=== PATIENT | female | born 1990 | race Caucasian/White ===

== ENCOUNTER 2017-11-19 17:03 | Inpatient (IN) | payer OTHER, MEDICAID ==
[2017-11-19] MEDS ORDERED: Ampicillin 2 GM in Sodium Chloride 0.9% 100 ML IV ONE (17:20)
[2017-11-19] MEDS ORDERED: Ampicillin 2 GM Vial ONE (17:23)
[2017-11-19] MEDS ORDERED: Sodium Chloride 0.9% 100 ML ONE (17:26)
[2017-11-19] MEDS ORDERED: Lactated Ringers 1,000 ML IV ONE (17:45)
--- NOTE | 2017-11-19 18:39 | PCM.LDHP ---
L&D History of Present Illness - General Date of Service: 11/19/17 Admit Problem/Dx: Admission Diagnosis/Problem Admission Diagnosis/Problem Source of Information: Patient History Limitations: Reports: No Limitations - History of Present Illness Introduction:: 27 year old female with EDC of 11/18/17 based on 6 4/7 week US presented with contractions, leaking fluid and some vaginal bleeding starting at 1400 today. On presentation to L&D she was having contractions ever 2 minutes, amniosure was positive, she was 8 cm with a bulging bag and FHT's were 150's with initial earlys to 90's then late decelerations. Timing/Duration: Reports: hour(s): (4) Location, : Reports: Abdomen Severity: Severe - Related Data Allergies/Adverse Reactions: Allergies Allergy/AdvReac Type Severity Reaction Status Date / Time No Known Allergies Allergy Verified 11/19/17 18:36 Home Medications: Home Meds Vits #93/Iron Fum/FA [ Formula Tablet] 1 tab PO DAILY 11/19/17 [History] Social & Family History - Family History Family Medical History: Noncontributory Respiratory: Reports: COPD (MGM) - Tobacco Use Tobacco Use Within Last Twelve Months: Cigarettes Packs/Tins Daily: 0.5 H&P Review of Systems - Review of Systems: Review Of Systems: See Below General: Reports: No Symptoms HEENT: Reports: No Symptoms Pulmonary: Reports: No Symptoms Cardiovascular: Reports: No Symptoms Gastrointestinal: Reports: No Symptoms Genitourinary: Reports: No Symptoms Musculoskeletal: Reports: No Symptoms L&D Exam - Exam Exam: See Below - Vital Signs Weight: 160 lb - OB Specific Contraction Intensity: Moderate to Strong Heart Rate (FHR) Variability: Moderate (6-25 bmp) Presentation: Left Occiput Anterior (SUZAN) - Dean Score Dean Score Dilation: > 5 cm - Exam General: Alert, Oriented Lungs: Clear to Auscultation Cardiovascular: Regular Rate, Regular Rhythm GI/Abdominal Exam: Soft, Non-Tender Skin: Warm, Dry, Intact - Patient Data Lab Results Last 24 hrs: Laboratory Results - last 24 hr 11/19/17 11/19/17 Range/Units 17:12 17:21 Urine Color Yellow Urine Appearance Cloudy Urine pH 6.0 (4.5-8.0) Ur Specific [place] 1.005 L (1.008-1.030) Urine Protein Negative (NEGATIVE) mg/dL Urine Glucose (UA) Normal (NEGATIVE) mg/dL Urine Ketones 15 H (NEGATIVE) mg/dL Urine Occult Blood Large (NEGATIVE) Urine Nitrite Negative (NEGATIVE) Urine Bilirubin Negative (NEGATIVE) Urine Urobilinogen Normal (NORMAL) mg/dL Ur Leukocyte Esterase Large (NEGATIVE) Urine RBC 75-100 H (0-5) Urine WBC 20-30 H (0-5) Ur Epithelial Cells Rare Amorphous Sediment Not seen Urine Bacteria Moderate Urine Mucus Not seen Urine Opiates Screen Negative (NEGATIVE) Ur Oxycodone Screen Negative (NEGATIVE) Urine Methadone Screen Negative (NEGATIVE) Ur Propoxyphene Screen Negative (NEGATIVE) Ur Barbiturates Screen Negative (NEGATIVE) Ur Tricyclics Screen Negative (NEGATIVE) Ur Phencyclidine Scrn Negative (NEGATIVE) Ur Amphetamine Screen Negative (NEGATIVE) U Methamphetamines Scrn Negative (NEGATIVE) Urine MDMA Screen Negative (NEGATIVE) U Benzodiazepines Scrn Negative (NEGATIVE) U Cocaine Metab Screen Negative (NEGATIVE) U Marijuana (THC) Screen Negative (NEGATIVE) - Problem List (1) Group B streptococcal carriage complicating SNOMED Code(s): 650558203410676 ICD Code: O99.820 - STREPTOCOCCUS B CARRIER STATE COMPLICATING Status: Acute Current Visit: Yes (2) Labor abnormal SNOMED Code(s): 61749858 ICD Code: O62.9 - ABNORMALITY OF FORCES OF [employer], UNSPECIFIED Status: Acute Current Visit: Yes (3) Term SNOMED Code(s): 02325044 ICD Code: Z34.80 - ENCOUNTER FOR SUPRVSN OF NORMAL , UNSP TRIMESTER Status: Acute Current Visit: Yes (4) Tobacco abuse SNOMED Code(s): 982220134 ICD Code: Z72.0 - TOBACCO USE Status: Acute Current Visit: Yes Problem List Initiated/Reviewed/Updated: Yes Orders Last 24hrs: Active Orders 24 hr Category Date Time Status DRUG SCREEN, URINE [URCHEM] Routine Lab 11/19/17 17:21 Ordered URINALYSIS W/MICROSCOPIC [UA W/MICROSCOPIC] [URIN] Lab 11/19/17 17:12 Ordered Routine Lactated Ringers [Ringers, Lactated] 1,000 ml Med 11/19/17 17:45 Active IV BOLUS Oxytocin/Normal Saline [Pitocin in NS 20 Units/1,000 ML Med 11/19/17 17:45 Active ] 20 unit in 1,000 ml IV ONETIME Medication Orders Oxytocin/Sodium Chloride (Pitocin In Ns 20 Units/1,000 Ml) 20 unit in 1,000 mls @ 999 mls/hr IV ONETIME ONE Stop: 11/19/17 18:45 Lactated Ringer's (Ringers, Lactated) 1,000 mls @ 999 mls/hr IV BOLUS ONE Stop: 11/19/17 18:45 Assessment/Plan Comment:: 27 year old female at 40 1/7 weeks presenting in active labor with SROM. GBS positive. P: Ampicillin started but not completely infused prior to delivery. Labor complicated by Cat 2 FHT with rapid delivery.
--- NOTE | 2017-11-19 18:51 | PCM.DEL ---
L & D Note - General Info Date of Service: 11/19/17 Mother's Due Date: 11/18/17 - Delivery Note Labor: Spontaneous Delivery Outcome: Livebirth Infant Delivery Method: Spontaneous Vaginal Delivery-Single Presentation: Left Occiput Anterior (SUZAN) Nuchal Cord: None Anesthesia Type: None Amniotic Fluid Description: Bloody Episiotomy Type: None Laceration: None Placenta: Intact, Spontaneous Cord: 3 Vessels Estimated Blood Loss: 200 Resuscitation Needed: Yes : Suctioned, Stimulated, Warmed, [place] Used, Warmer Used Provider: Brook Modi Score 1 min: 9 Score 5 min: 10 Delivery Comments (Free Text/Narrative):: Mom presented in active labor 8 cm with bulging bag and positive amniotest. FHT were Cat 2 with repetitive earlys transitioning to lates. Mom had ampicillin started, O2, position change and bolus of fluids. Had SROM with forebag and rapid delivery with 8 minutes of FHT. Baby delivered SUZAN, left shoulder anterior. She went to Mom's chest and cord was clamped and cut after 1 minutes. Cord blood sample was obtained and placenta delivered 3V and intact. EBL was 200. There were no perineal or cervical lacerations. Uterus was firm. Pitocin was given IV. - General Info Date of Service: 11/19/17 - Review of Systems General: Reports: No Symptoms HEENT: Reports: No Symptoms Pulmonary: Reports: No Symptoms Cardiovascular: Reports: No Symptoms Gastrointestinal: Reports: No Symptoms Genitourinary: Reports: No Symptoms Musculoskeletal: Reports: No Symptoms Skin: Reports: No Symptoms Neurological: Reports: No Symptoms Psychiatric: Reports: No Symptoms - Patient Data Weight - Most Recent: 160 lb Lab Results Last 24 Hours: Laboratory Results - last 24 hr 11/19/17 11/19/17 Range/Units 17:12 17:21 Urine Color Yellow Urine Appearance Cloudy Urine pH 6.0 (4.5-8.0) Ur Specific [place] 1.005 L (1.008-1.030) Urine Protein Negative (NEGATIVE) mg/dL Urine Glucose (UA) Normal (NEGATIVE) mg/dL Urine Ketones 15 H (NEGATIVE) mg/dL Urine Occult Blood Large (NEGATIVE) Urine Nitrite Negative (NEGATIVE) Urine Bilirubin Negative (NEGATIVE) Urine Urobilinogen Normal (NORMAL) mg/dL Ur Leukocyte Esterase Large (NEGATIVE) Urine RBC 75-100 H (0-5) Urine WBC 20-30 H (0-5) Ur Epithelial Cells Rare Amorphous Sediment Not seen Urine Bacteria Moderate Urine Mucus Not seen Urine Opiates Screen Negative (NEGATIVE) Ur Oxycodone Screen Negative (NEGATIVE) Urine Methadone Screen Negative (NEGATIVE) Ur Propoxyphene Screen Negative (NEGATIVE) Ur Barbiturates Screen Negative (NEGATIVE) Ur Tricyclics Screen Negative (NEGATIVE) Ur Phencyclidine Scrn Negative (NEGATIVE) Ur Amphetamine Screen Negative (NEGATIVE) U Methamphetamines Scrn Negative (NEGATIVE) Urine MDMA Screen Negative (NEGATIVE) U Benzodiazepines Scrn Negative (NEGATIVE) U Cocaine Metab Screen Negative (NEGATIVE) U Marijuana (THC) Screen Negative (NEGATIVE) Med Orders - Current: Current Medications Discontinued Medications Ampicillin Sodium (Ampicillin) Confirm Administered Dose 2 gm .ROUTE .STK-MED ONE Stop: 11/19/17 17:24 Last Admin: 11/19/17 17:30 Dose: 2 gm Sodium Chloride (Normal Saline) Confirm Administered Dose 100 mls @ as directed .ROUTE .STK-MED ONE Stop: 11/19/17 17:27 Oxytocin/Sodium Chloride (Pitocin In Ns 20 Units/1,000 Ml) 20 unit in 1,000 mls @ 999 mls/hr IV ONETIME ONE Stop: 11/19/17 18:45 Last Admin: 11/19/17 18:40 Dose: 999 mls/hr Lactated Ringer's (Ringers, Lactated) 1,000 mls @ 999 mls/hr IV BOLUS ONE Stop: 11/19/17 18:45 Last Admin: 11/19/17 18:41 Dose: 999 mls/hr - Exam General: Alert, Oriented Lungs: Clear to Auscultation, Normal Respiratory Effort Cardiovascular: Regular Rate, Regular Rhythm GI/Abdominal Exam: Normal Bowel Sounds, Soft, Non-Tender (Female) Exam: Normal External Exam Extremities: Non-Tender, No Pedal Edema Skin: Warm, Dry, Intact Psy/Mental Status: Alert, Normal Affect, Normal Mood - Problem List & Annotations (1) Group B streptococcal carriage complicating SNOMED Code(s): 026957333978168 Code(s): O99.820 - STREPTOCOCCUS B CARRIER STATE COMPLICATING Status: Acute Current Visit: Yes (2) Labor abnormal SNOMED Code(s): 26045574 Code(s): O62.9 - ABNORMALITY OF [employer], UNSPECIFIED Status: Acute Current Visit: Yes (3) Term SNOMED Code(s): 28113418 Code(s): Z34.80 - ENCOUNTER FOR SUPRVSN OF NORMAL , UNSP TRIMESTER Status: Acute Current Visit: Yes (4) Tobacco abuse SNOMED Code(s): 197205665 Code(s): Z72.0 - TOBACCO USE Status: Acute Current Visit: Yes - Problem List Review Problem List Initiated/Reviewed/Updated: Yes - My Orders Last 24 Hours: My Active Orders 11/19/17 17:12 URINALYSIS W/MICROSCOPIC [UA W/MICROSCOPIC] [URIN] Routine 11/19/17 17:21 DRUG SCREEN, URINE [URCHEM] Routine - Assessment Assessment:: 27 year old female at 40 1/7 weeks with spontaneous vaginal delivery. Complications include Tobacco abuse, GBS positive with inadequate prophylaxis ( partial one dose), and Cat 2 FHT. - Plan Plan:: Routine cares. Encourage . Anticipate 48 hour stay for baby.
[2017-11-19] MEDS ORDERED: Lanolin 100% Cream 40 GM Tube TOP PRN ×2 (19:09→19:29)
[2017-11-19] MEDS ORDERED: Docusate Sodium 100 MG Cap PO PRN (19:09)
[2017-11-19] MEDS ORDERED: Acetaminophen 325 MG Tab, 50 Tab Bulk Bottle PO PRN (19:15)
[2017-11-19] MEDS ORDERED: Ibuprofen 200 MG Tab, 24 Tab Bulk Bottle PO PRN (19:17)
--- NOTE | 2017-11-20 12:23 | PCM.PNPP ---
- General Info Date of Service: 11/20/17 (PPD 1 ) Admission Dx/Problem (Free Text): Admission Diagnosis/Problem Admission Diagnosis/Problem Functional Status: Reports: Pain Controlled - Review of Systems General: Reports: No Symptoms HEENT: Reports: No Symptoms Pulmonary: Reports: No Symptoms Cardiovascular: Reports: No Symptoms Gastrointestinal: Reports: No Symptoms Genitourinary: Reports: No Symptoms Musculoskeletal: Reports: No Symptoms Skin: Reports: No Symptoms Neurological: Reports: No Symptoms Psychiatric: Reports: No Symptoms - General Info Date of Service: 11/20/17 - Patient Data Vital Signs - Most Recent: Last Vital Signs Temp 96.3 F 11/20/17 07:29 Pulse 73 11/20/17 07:29 Resp 18 11/20/17 07:29 BP 107/64 11/20/17 07:29 Pulse Ox 98 11/20/17 07:29 Weight - Most Recent: 160 lb I&O - Last 24 Hours: Intake & Output 11/19/17 11/20/17 11/20/17 22:59 06:59 14:59 Intake Total 1000 1999 120 Balance 1000 2000 120 Lab Results - Last 24 Hours: Laboratory Results - last 24 hr 11/19/17 11/19/17 11/20/17 Range/Units 17:12 17:21 05:42 WBC 19.9 H (4.5-11.0) K/uL RBC 3.11 L (3.30-5.50) M/uL Hgb 10.9 L (12.0-15.0) g/dL Hct 31.9 L (36.0-48.0) % MCV 103 H (80-98) fL MCH 35 H (27-31) pg MCHC 34 (32-36) % Plt Count 190 (150-400) K/uL Neut % (Auto) 69 H (36-66) % Lymph % (Auto) 21 L (24-44) % [place] % (Auto) 9 H (2-6) % Eos % (Auto) 1 L (2-4) % Baso % (Auto) 0 (0-1) % Urine Color Yellow Urine Appearance Cloudy Urine pH 6.0 (4.5-8.0) Ur Specific [place] 1.005 L (1.008-1.030) Urine Protein Negative (NEGATIVE) mg/dL Urine Glucose (UA) Normal (NEGATIVE) mg/dL Urine Ketones 15 H (NEGATIVE) mg/dL Urine Occult Blood Large (NEGATIVE) Urine Nitrite Negative (NEGATIVE) Urine Bilirubin Negative (NEGATIVE) Urine Urobilinogen Normal (NORMAL) mg/dL Ur Leukocyte Esterase Large (NEGATIVE) Urine RBC 75-100 H (0-5) Urine WBC 20-30 H (0-5) Ur Epithelial Cells Rare Amorphous Sediment Not seen Urine Bacteria Moderate Urine Mucus Not seen Urine Opiates Screen Negative (NEGATIVE) Ur Oxycodone Screen Negative (NEGATIVE) Urine Methadone Screen Negative (NEGATIVE) Ur Propoxyphene Screen Negative (NEGATIVE) Ur Barbiturates Screen Negative (NEGATIVE) Ur Tricyclics Screen Negative (NEGATIVE) Ur Phencyclidine Scrn Negative (NEGATIVE) Ur Amphetamine Screen Negative (NEGATIVE) U Methamphetamines Scrn Negative (NEGATIVE) Urine MDMA Screen Negative (NEGATIVE) U Benzodiazepines Scrn Negative (NEGATIVE) U Cocaine Metab Screen Negative (NEGATIVE) U Marijuana (THC) Screen Negative (NEGATIVE) Med Orders - Current: Current Medications Acetaminophen (Tylenol Bulk Bottle) 650 mg PO Q4H PRN PRN Reason: Pain (moderate 4-6) Docusate Sodium (Colace) 100 mg PO BID PRN PRN Reason: Constipation Emollient Ointment (Lansinoh Hpa) 0 gm TOP ASDIRECTED PRN PRN Reason: Sore Nipples Ibuprofen (Motrin Bulk Bottle) 600 mg PO Q6H PRN PRN Reason: Pain (moderate 4-6) Discontinued Medications Ampicillin Sodium (Ampicillin) Confirm Administered Dose 2 gm .ROUTE .STK-MED ONE Stop: 11/19/17 17:24 Last Admin: 11/19/17 17:30 Dose: 2 gm Emollient Ointment (Lansinoh Hpa) 1 gm TOP ASDIRECTED PRN PRN Reason: Sore Nipples Sodium Chloride (Normal Saline) Confirm Administered Dose 100 mls @ as directed .ROUTE .STK-MED ONE Stop: 11/19/17 17:27 Last Admin: 11/19/17 23:07 Dose: Not Given Oxytocin/Sodium Chloride (Pitocin In Ns 20 Units/1,000 Ml) 20 unit in 1,000 mls @ 999 mls/hr IV ONETIME ONE Stop: 11/19/17 18:45 Last Admin: 11/19/17 18:40 Dose: 999 mls/hr Lactated Ringer's (Ringers, Lactated) 1,000 mls @ 999 mls/hr IV BOLUS ONE Stop: 11/19/17 18:45 Last Admin: 11/19/17 18:41 Dose: 999 mls/hr - Infant Interaction Disposition, : in Room with Family Interaction: Holding Feeding: Breastfed ; Nursed Well Support Person: Significant Other - Recovery Exam Fundal Tone: Firm Fundal Level: 1 Fingerbreadths Below Umbilicus Fundal Placement: Midline Lochia Amount: Moderate Lochia Color: Rubra/Red Perineum Description: Intact, Minimal Bruising/Swelling Episiotomy/Laceration: None Bladder Status: Voiding Urinary Elimination: Voided - Exam General: Alert, Oriented HEENT: Pupils Equal Neck: Supple Lungs: Clear to Auscultation, Normal Respiratory Effort Cardiovascular: Regular Rate, Regular Rhythm GI/Abdominal Exam: Normal Bowel Sounds, Soft, Non-Tender, No Organomegaly, No Distention, No Abnormal Bruit, No Mass, Pelvis Stable Extremities: Normal Inspection, Normal Range of Motion, Non-Tender, No Pedal Edema, Normal Capillary Refill Skin: Warm, Dry, Intact Wound/Incisions: Healing Well Neurological: No New Focal Deficit Psy/Mental Status: Alert, Normal Affect, Normal Mood - Problem List & Annotations (1) Group B streptococcal carriage complicating SNOMED Code(s): 268963615848623 Code(s): O99.820 - STREPTOCOCCUS B CARRIER STATE COMPLICATING Status: Acute Current Visit: Yes (2) Labor abnormal SNOMED Code(s): 73946717 Code(s): O62.9 - ABNORMALITY OF [employer], UNSPECIFIED Status: Acute Current Visit: Yes (3) Term SNOMED Code(s): 27002912 Code(s): Z34.80 - ENCOUNTER FOR SUPRVSN OF NORMAL , UNSP TRIMESTER Status: Acute Current Visit: Yes (4) Tobacco abuse SNOMED Code(s): 319278034 Code(s): Z72.0 - TOBACCO USE Status: Acute Current Visit: Yes - Problem List Review Problem List Initiated/Reviewed/Updated: Yes - Assessment Assessment:: 27 year old female at 40 1/7 weeks with spontaneous vaginal delivery. Complications include Tobacco abuse, GBS positive with inadequate prophylaxis ( partial one dose), and Cat 2 FHT. \ 11/20/17 Doing well today HGb 10.9 fair, need assistance. Flow light, no pain Mood happy - Plan Plan:: Routine cares. Encourage . Anticipate 48 hour stay for baby. 11/20/17 GBS positive 48 hour stay, no medication Support Home 48 hours
--- NOTE | 2017-11-21 08:28 | PCM.PNPP ---
- General Info Date of Service: 11/21/17 (PPD 2 D/C) Admission Dx/Problem (Free Text): Admission Diagnosis/Problem Admission Diagnosis/Problem Functional Status: Reports: Pain Controlled - Review of Systems General: Reports: No Symptoms HEENT: Reports: No Symptoms Pulmonary: Reports: No Symptoms Cardiovascular: Reports: No Symptoms Gastrointestinal: Reports: No Symptoms Genitourinary: Reports: No Symptoms Musculoskeletal: Reports: No Symptoms Skin: Reports: No Symptoms Neurological: Reports: No Symptoms Psychiatric: Reports: No Symptoms - General Info Date of Service: 11/21/17 - Patient Data Vital Signs - Most Recent: Last Vital Signs Temp 96.6 F 11/21/17 07:19 Pulse 76 11/21/17 07:19 Resp 16 11/21/17 07:19 BP 126/59 L 11/21/17 07:19 Pulse Ox 98 11/21/17 07:19 Weight - Most Recent: 160 lb 0.008 oz I&O - Last 24 Hours: Intake & Output 11/20/17 11/21/17 11/21/17 22:59 06:59 14:59 Intake Total 700 Balance 700 Med Orders - Current: Current Medications Acetaminophen (Tylenol Bulk Bottle) 650 mg PO Q4H PRN PRN Reason: Pain (moderate 4-6) Docusate Sodium (Colace) 100 mg PO BID PRN PRN Reason: Constipation Last Admin: 11/20/17 18:32 Dose: 100 mg Emollient Ointment (Lansinoh Hpa) 0 gm TOP ASDIRECTED PRN PRN Reason: Sore Nipples Last Admin: 11/20/17 15:21 Dose: 1 tube Ibuprofen (Motrin Bulk Bottle) 600 mg PO Q6H PRN PRN Reason: Pain (moderate 4-6) Discontinued Medications Ampicillin Sodium (Ampicillin) Confirm Administered Dose 2 gm .ROUTE .STK-MED ONE Stop: 11/19/17 17:24 Last Admin: 11/19/17 17:30 Dose: 2 gm Emollient Ointment (Lansinoh Hpa) 1 gm TOP ASDIRECTED PRN PRN Reason: Sore Nipples Sodium Chloride (Normal Saline) Confirm Administered Dose 100 mls @ as directed .ROUTE .STK-MED ONE Stop: 11/19/17 17:27 Last Admin: 11/19/17 23:07 Dose: Not Given Oxytocin/Sodium Chloride (Pitocin In Ns 20 Units/1,000 Ml) 20 unit in 1,000 mls @ 999 mls/hr IV ONETIME ONE Stop: 11/19/17 18:45 Last Admin: 11/19/17 18:40 Dose: 999 mls/hr Lactated Ringer's (Ringers, Lactated) 1,000 mls @ 999 mls/hr IV BOLUS ONE Stop: 11/19/17 18:45 Last Admin: 11/19/17 18:41 Dose: 999 mls/hr - Infant Interaction Disposition, : in Room with Family Interaction: Holding Infant Infant Feeding: Breastfed ; Nursed Well Support Person: Significant Other - Recovery Exam Fundal Tone: Firm Fundal Level: 2 Fingerbreadths Below Umbilicus Fundal Placement: Midline Lochia Amount: Small Lochia Color: Rubra/Red Perineum Description: Intact, Minimal Bruising/Swelling Episiotomy/Laceration: None Bladder Status: Voiding Urinary Elimination: Voided - Exam General: Alert, Oriented HEENT: Pupils Equal Neck: Supple Lungs: Clear to Auscultation, Normal Respiratory Effort Cardiovascular: Regular Rate, Regular Rhythm GI/Abdominal Exam: Normal Bowel Sounds, Soft, Non-Tender, No Organomegaly, No Distention, No Abnormal Bruit, No Mass, Pelvis Stable Extremities: Normal Inspection, Normal Range of Motion, Non-Tender, No Pedal Edema, Normal Capillary Refill Skin: Warm, Dry, Intact Wound/Incisions: Healing Well Neurological: No New Focal Deficit Psy/Mental Status: Alert, Normal Affect, Normal Mood - Problem List & Annotations (1) Group B streptococcal carriage complicating SNOMED Code(s): 606017380584134 Code(s): O99.820 - STREPTOCOCCUS B CARRIER STATE COMPLICATING Status: Acute Current Visit: Yes (2) Labor abnormal SNOMED Code(s): 47828547 Code(s): O62.9 - ABNORMALITY OF [employer], UNSPECIFIED Status: Acute Current Visit: Yes (3) Term SNOMED Code(s): 06302579 Code(s): Z34.80 - ENCOUNTER FOR SUPRVSN OF NORMAL , UNSP TRIMESTER Status: Acute Current Visit: Yes (4) Tobacco abuse SNOMED Code(s): 127213116 Code(s): Z72.0 - TOBACCO USE Status: Acute Current Visit: Yes - Problem List Review Problem List Initiated/Reviewed/Updated: Yes - Assessment Assessment:: 27 year old female at 40 1/7 weeks with spontaneous vaginal delivery. Complications include Tobacco abuse, GBS positive with inadequate prophylaxis ( partial one dose), and Cat 2 FHT. \ 11/20/17 Doing well today HGb 10.9 fair, need assistance. Flow light, no pain Mood happy 11/21/17 Doing well No problems better over the night Ready to go home - Plan Plan:: Routine cares. Encourage . Anticipate 48 hour stay for baby. 11/20/17 GBS positive 48 hour stay, no medication Support Home 48 hours 11/21/16 Home today See Cooper Melgar CNM in Clinic for Post visit in 6-7 weeks.
== END 2017-11-21 13:11 | disposition home or self-care (01) | DRG 775 ==
LOC: JP.OBCHECK 17:03 → JP.OB 17:22 → OBSVTOIN 17:43 → JP.MS 18:29
PROVIDERS: ADMIT Family Medicine; ATTEND Family Medicine
PROC: 10E0XZZ Delivery of Products of Conception, External Approach (ICD-10-PCS; principal; 2017-11-19)
PROC: 6A550ZT Pheresis of Cord Blood Stem Cells, Single (ICD-10-PCS; 2017-11-19)
DX: O99.824 Streptococcus B carrier state complicating childbirth (principal); O99.334 Smoking (tobacco) complicating childbirth; O75.89 Other specified complications of labor and delivery; O76 Abnormality in fetal heart rate and rhythm complicating labor and delivery; Z3A.40 40 weeks gestation of pregnancy; Z37.0 Single live birth
CPT/HCPCS: 36415; 59409; 80305; 81001; 85025; A9270-GY; J0290; J2590; J7120

== ENCOUNTER 2023-03-21 19:45 | Emergency (ER) | payer BC, MEDICAID ==
[2023-03-21] MEDS ORDERED: EPINEPHrine 1 MG/ML SDV SUBCUT ONE (19:49)
[2023-03-21] MEDS ORDERED: diphenhydrAMINE 50 MG/ML SDV IVPUSH ONE (19:50)
[2023-03-21] MEDS ORDERED: methylPREDNISolone Sodium Succinate 125 MG/2 ML SDV IVPUSH ONE (19:50)
[2023-03-21] MEDS ORDERED: diphenhydrAMINE 25 MG Cap PO ONE (19:50)
[2023-03-21] MEDS ORDERED: Sodium Chloride 0.9% 1,000 ML IV SCH (20:00)
== END 2023-03-21 21:57 | disposition home or self-care (01) ==
LOC: JP.ED 19:45
DX: T63.441A Toxic effect of venom of bees, accidental (unintentional), initial encounter (principal); F17.210 Nicotine dependence, cigarettes, uncomplicated; Z91.030 Bee allergy status
CPT/HCPCS: 96361; 96372; 96374; 96375; 99283; J0171; J1200; J2930; J7030

== ENCOUNTER 2023-09-21 07:33 | Day surgery (SDC) | payer MEDICAID, OTHER ==
[~2023-09-21 07:33] MED LIST: Midazolam 1 MG/ML 2 ML SDV ONE; Propofol 200 MG/20 ML SDV ONE; fentaNYL 50 MCG/ML SDV ONE
[2023-09-21] MEDS: Sodium Chloride 0.9% 1,000 ML IV SCH (08:36)
[2023-09-21] MEDS ORDERED: Propofol 200 MG/20 ML SDV ONE (10:02)
== END 2023-09-21 11:25 | disposition home or self-care (01) ==
LOC: JP.SDS 07:33
PROVIDERS: ATTEND Surgery
DX: Z12.11 Encounter for screening for malignant neoplasm of colon (principal); K63.5 Polyp of colon; F17.210 Nicotine dependence, cigarettes, uncomplicated; Z91.030 Bee allergy status
CPT/HCPCS: 45380; 81025; J2250; J2704; J3010; J7030